=== PATIENT | female | born 1935 | race Caucasian/White ===

== ENCOUNTER 2017-11-27 13:53 | Emergency (ER) | payer MEDICARE, BC ==
[~2017-11-27] VITALS: Ht 170.2 cm; Wt 62.1 kg
[2017-11-27] MEDS ORDERED: TDAP DIPH,PERTUSS,TET VAC/PF 0.5 ML DISP.SYRIN IM ONE (14:25)
[2017-11-27] MEDS: TDAP DIPH,PERTUSS,TET VAC/PF 0.5 ML DISP.SYRIN IM ONE (14:32)
[2017-11-27] MEDS: LIDOCAINE HCL 2% 20 ML VIAL TP ONE (14:35)
--- NOTE | 2017-11-27 14:36 | NUR ---
Patient discharged to home in stable conditon. Written and verbal after care instructions given. Patient verbalizes understanding of instructions.pt walks in steady gait accompanied by daughter
== END 2017-11-27 14:37 | disposition home or self-care (01) ==
LOC: ER 13:53
DX: S51.812A Laceration without foreign body of left forearm, initial encounter (principal); I10 Essential (primary) hypertension; E11.9 Type 2 diabetes mellitus without complications; Z88.5 Allergy status to narcotic agent; Z88.2 Allergy status to sulfonamides; Z88.8 Allergy status to other drugs, medicaments and biological substances; W26.8XXA Contact with other sharp object(s), not elsewhere classified, initial encounter; Y92.89 Other specified places as the place of occurrence of the external cause; Y93.89 Activity, other specified; Y99.8 Other external cause status
CPT/HCPCS: 90715; A4217; A4663

== ENCOUNTER 2017-11-29 10:34 | Emergency (ER) | payer MEDICARE, BC ==
[~2017-11-29] VITALS: Ht 167.6 cm; Wt 63.5 kg
[2017-11-29 11:34] LABS: BASOPHILS % (AUTO) 0.5 % (0.0-2.0); EOSINOPHILS # (AUTO) 0.1 K/uL (0.0-0.7); EOSINOPHILS % (AUTO) 0.8 % (0.0-7.0); HEMOGLOBIN 12.3 g/dL (10.9-14.3); LYMPHOCYTES # (AUTO) 1.9 K/uL (20.0-40.0); LYMPHOCYTES % (AUTO) 20.5 % (20.5-51.5); MEAN CORPUSCULAR HEMOGLOBIN 28.9 uug (24.7-32.8); MEAN CORPUSCULAR HGB CONC 33 g/dL (32.3-35.6); MEAN CORPUSCULAR VOLUME 86.8 fL (75.5-95.3); MONOCYTES # (AUTO) 0.6 K/uL (2.0-10.0); MONOCYTES % (AUTO) 6.6 % (0.0-11.0); NEUTROPHILS # (AUTO) 6.5 K/uL (1.8-8.9); NEUTROPHILS % (AUTO) 71.6 % (38.5-71.5); PLATELET COUNT (AUTO) 284 K/uL (179-408); RED BLOOD CELL COUNT(AUTO) 4.26 MIL/uL (3.63-4.92); WHITE BLOOD COUNT (AUTO) 9.1 K/uL (3.8-11.8)
[2017-11-29 11:43] LABS: CARBON DIOXIDE 25 mmol/L (21-32); CHLORIDE 98 mmol/L (98-107); CREATININE 0.8 mg/dL (0.6-1.3); GLUCOSE 130 mg/dL (74-106); POTASSIUM 4.5 mmol/L (3.5-5.1); UREA NITROGEN, BLOOD 16 mg/dL (7-18)
[2017-11-29 11:49] LABS: ALANINE AMINOTRANSFERASE 21 U/L (14-59); ALKALINE PHOSPHATASE 78 U/L (50-136); ASPARTATE AMINOTRANSFERASE 14 U/L (15-37); BILIRUBIN,TOTAL 0.4 mg/dL (0.2-1.0); TOTAL PROTEIN, SERUM 7.4 g/dL (6.4-8.2)
[2017-11-29 12:20] LABS: *BILIRUBIN,URIN NEGATIVE (NEGATIVE); *BLOOD, URINE NEGATIVE (NEGATIVE); *CLARITY,URINE CLEAR (CLEAR); *COLOR,URINE YELLOW (YELLOW); *KETONES,URINE NEGATIVE (NEGATIVE); *PROTEIN,URINE NEGATIVE (NEGATIVE); *UROBILINOGEN,URINE 0.2 E.U./dl (NORMAL); LEUKOCYTE ESTERASE ,URINE 1+ (NEGATIVE); NITRITE, URINE NEGATIVE (NEGATIVE); UGLUCOSE NEGATIVE (NEGATIVE)
[2017-11-29 12:31] LABS: BACTERIA,URINE MODERATE /HPF (NONE SEEN); RBC,URINE 0-3 /HPF (0-3); SQUAMOUS EPITHELIAL CELL,UR FEW /HPF (NONE SEEN)
--- NOTE | 2017-11-29 12:54 | NUR ---
Patient discharged to home in stable conditon. Written and verbal after care instructions given to patient and patient's adult daughter. Patient and family verbalized understanding of instructions.
--- NOTE | 2017-11-29 12:55 | NUR ---
1253- received pt for discharge-AOX4, calm and breathing easily, NAD.
== END 2017-11-29 12:57 | disposition home or self-care (01) ==
LOC: ER 10:34
DX: N39.0 Urinary tract infection, site not specified (principal); R10.31 Right lower quadrant pain; R10.11 Right upper quadrant pain; I10 Essential (primary) hypertension; E11.9 Type 2 diabetes mellitus without complications; Z88.2 Allergy status to sulfonamides; Z48.00 Encounter for change or removal of nonsurgical wound dressing; Z88.5 Allergy status to narcotic agent; Z88.8 Allergy status to other drugs, medicaments and biological substances
CPT/HCPCS: 36415; 74022; 80053; 81001; 85025; 99285; A4663

== ENCOUNTER 2018-11-26 12:29 | Emergency (ER) | payer MEDICARE, BC ==
[~2018-11-26] VITALS: Ht 160 cm; Wt 70.3 kg
[2018-11-26] MEDS ORDERED: CHOL20004 PO (12:54)
[2018-11-26] MEDS ORDERED: METF-442 PO (12:54)
[2018-11-26] MEDS ORDERED: ESCI5TAB PO (12:54)
[2018-11-26] MEDS ORDERED: ROSU10TA2 PO (12:54)
[2018-11-26] MEDS ORDERED: OLME20TA13 PO ×2 (12:54)
--- NOTE | 2018-11-26 12:58 | NUR ---
pt is in room #1b. dr Ramirez evaluated the pt..
--- NOTE | 2018-11-26 14:12 | NUR ---
Pt was d/c'D to home after dr Ramirez re-evaluation. D/C INSTRUCTIONS GIVEN TO THE PT AND TO HER FAMILY. GAIT IS STABLE. NO S/S OF ACUTE DISTRESS.
[2018-11-26 14:20] VITALS: BP 149/88
== END 2018-11-26 14:21 | disposition home or self-care (01) ==
LOC: ER 12:29
DX: S00.03XA Contusion of scalp, initial encounter (principal); I10 Essential (primary) hypertension; E11.9 Type 2 diabetes mellitus without complications; E78.5 Hyperlipidemia, unspecified; Z88.5 Allergy status to narcotic agent; Z88.8 Allergy status to other drugs, medicaments and biological substances; Z88.2 Allergy status to sulfonamides; Z79.899 Other long term (current) drug therapy; W01.198A Fall on same level from slipping, tripping and stumbling with subsequent striking against other object, initial encounter; Y93.89 Activity, other specified; Y92.89 Other specified places as the place of occurrence of the external cause; Y99.8 Other external cause status
CPT/HCPCS: 70450; 72125; A4663